=== PATIENT | female | born 1950 | race Caucasian/White ===

== ENCOUNTER → 2018-05-05 | Outpatient (CLI) | payer BC ==
[2018-05-05 09:58] LABS: Basophils # (A) 0.1 k/uL (0-0.2); Basophils % (A) 1 %; Eosinophils # (A) 0.1 k/uL (0-0.7); Eosinophils % (A) 2 %; HCT 37.1 % (34.0-46.0); HGB 12.5 gm/dL (11.4-16.0); Lymphocytes # (A) 2.5 k/uL (1.0-4.8); Lymphocytes % (A) 32 %; MCH 30.7 pg (25.0-35.0); MCHC 33.8 g/dL (31.0-37.0); MCV 90.8 fL (80.0-100.0); Mean Platelet Volume 7.1; Monocytes # (A) 0.3 k/uL (0-1.0); Monocytes % (A) 4 %; Neutrophils # (A) 4.5 k/uL (1.3-7.7); Neutrophils % (A) 59 %; Platelet Count 223 k/uL (150-450); RBC 4.09 m/uL (3.80-5.40); RDW 12.6 % (11.5-15.5); WBC 7.7 k/uL (3.8-10.6)
[2018-05-05 14:13] LABS: Erythrocyte Sedimentation Rate 9 mm/hr (0-20)
== END | disposition home or self-care (01) ==
LOC: LABWHC1 09:01
PROVIDERS: ATTEND Physical Medicine & Rehabilitation
DX: M35.3 Polymyalgia rheumatica (principal)
CPT/HCPCS: 36415; 85025; 85652; 86140

== ENCOUNTER → 2018-05-25 | Outpatient (CLI) | payer BC ==
--- NOTE | 2018-05-25 08:45 | MR ---
EXAMINATION TYPE: MR cervical spine wo con DATE OF EXAM: 05/25/2018 COMPARISON: 04/26/2010 HISTORY: Cervical DDD, Spondylosis, C4-C7 Fusion TECHNIQUE: Multiplanar, multisequence images of the cervical spine were acquired. FINDINGS: Again there is postsurgical fusion of the C4-C7 vertebral levels. Straightening of usual ce rvical lordosis remains as seen on the prior. Bone marrow signal is within normal limits. Incidental note is made of a partially empty sella turcica. No prevertebral soft tissue swelling. C2-C3: There is a bilobed disc osteophyte complex without significant spinal canal stenosis. Uncovert ebral hypertrophy and facet arthropathy creating mild right neural foraminal narrowing at this level. No left-sided neural foraminal narrowing C3-C4: Uncovertebral hypertrophy and facet arthropathy creating mild bilateral neural foraminal narro wing. Small broad-based disc bulge is seen without spinal canal stenosis. C4-C5: There is uncovertebral hypertrophy and facet arthropathy creating mild right and moderate left neural foraminal narrowing. Residual disc is a broad-based disc bulge without significant spinal can al stenosis although there is slight narrowing of the ventral subarachnoid space. C5-C6: As seen on the prior exam of 2009 there is a protuberant osseous spurs/osteophyte that is seen at the postsurgical C5-C6 intervertebral disc space level that abuts the ventral cervical cord and e ffaces the ventral subarachnoid space. There is slight artifact mostly on the axial images through th e cervical cord at this level limiting evaluation for abnormal signal, however no abnormal cord signa l seen on sagittal images. This has not progressed in comparison to the prior 2009. There is mild lily ateral neural foraminal narrowing from uncovertebral hypertrophy and facet arthropathy. C6-C7: Uncovertebral hypertrophy and facet arthropathy creating moderate left and mild right neural f oraminal narrowing. No spinal canal stenosis or recurrent disc herniation. C7-T1: Uncovertebral hypertrophy and facet arthropathy are seen moderately narrowing the left neurofo ramen and mildly narrowing the right neuroforamen. No disc herniation or spinal canal stenosis. IMPRESSION: 1. Redemonstration of mild spinal canal stenosis at C5-C6 is seen on the exam of 2009 as a result of a protuberant spur/osteophyte at the intervertebral disc level and site of prior fusion. No myelomala rigo is identified. 2. No new/recurrent disc herniation or residual disc herniation. No other areas of spinal canal steno sis. 3. Multilevel degenerative disc disease resulting in variable degrees of neural foraminal narrowing a s described above. 4. Redemonstration of straightening of usual cervical lordosis that may be on the basis of muscular s pasm/sprain or patient positioning.
== END | disposition home or self-care (01) ==
LOC: RADMRIMAIN 07:09
PROVIDERS: ATTEND Physical Medicine & Rehabilitation
DX: M48.02 Spinal stenosis, cervical region (principal); M99.71 Connective tissue and disc stenosis of intervertebral foramina of cervical region; M99.72 Connective tissue and disc stenosis of intervertebral foramina of thoracic region; M50.33 Other cervical disc degeneration, cervicothoracic region; M48.8X2 Other specified spondylopathies, cervical region; Z98.1 Arthrodesis status
CPT/HCPCS: 72141

== ENCOUNTER → 2018-08-27 | Outpatient (CLI) | payer BC ==
--- NOTE | 2018-08-27 13:21 | MM ---
Reason for exam: screening (asymptomatic). Last mammogram was performed 4 years and 4 months ago. History: Patient is postmenopausal. Benign excisional biopsy of the left breast, 2000. Took estrogen for 11 years beginning at age 26. Physical Findings: A clinical breast exam by your physician is recommended on an annual basis and results should be correlated with mammographic findings. MG 3D Screening Mammo W/Cad Bilateral CC and MLO view(s) were taken. Prior study comparison: April 14, 2014, bilateral MG diagnostic mammo w CAD [facility]. July 10, 2012, bilateral digital screening mammo w/CAD. The breast tissue is heterogeneously dense. This may lower the sensitivity of mammography. There is no discrete abnormality. No significant changes when compared with prior studies. ASSESSMENT: Negative, BI-RAD 1 RECOMMENDATION: Routine screening mammogram of both breasts in 1 year.
== END | disposition home or self-care (01) ==
LOC: RADMAMWWP 06:55
PROVIDERS: ATTEND Obstetrics & Gynecology
DX: Z12.31 Encounter for screening mammogram for malignant neoplasm of breast (principal)
CPT/HCPCS: 77063; 77067

== ENCOUNTER 2019-05-12 11:58 | Day surgery (SDC) | payer BC ==
[2019-05-10 11:30] VITALS: BMI 25.7
[~2019-05-12 11:58] MED LIST: LACTATED RINGERS 1,000 ML IV SCH; LIDOCAINE 1% 20 ML VIAL (10MG/ML) FOR IV START INTRADERMA PRN; ONDANSETRON 4 MG/2 ML VIAL IVP ONE; Pre Op ABX Message 1 EACH MISC MISCELLANE ONE; fentaNYL (PF) 50 MCG/ML 2 ML AMP IV PRN
[2019-05-12 12:27] VITALS: TEMP 98.5
[2019-05-12] MEDS ORDERED: MIDAZOLAM 2 MG/2 ML VIAL ONE (12:47)
[2019-05-12] MEDS ORDERED: ePHEDrine SULFATE/0.9% NACL/PF 50 MG/5 ML SYRINGE IV ONE (12:47)
[2019-05-12] MEDS ORDERED: fentaNYL (PF) 50 MCG/ML 2 ML AMP ONE (12:47)
[2019-05-12] MEDS ORDERED: PROPOFOL 10 MG/ML 20 ML VIAL IV ONE (12:47)
[2019-05-12] MEDS ORDERED: SODIUM CHLORIDE 0.9% 50 ML with ceFAZolin 2,000 MG IV ONE ×2 (13:08)
[2019-05-12] MEDS ORDERED: BUPIVACAINE (PF) 0.25% 30 ML VIAL SQ ONE (13:10)
[2019-05-12 13:43] VITALS: RESP 18
--- NOTE | 2019-05-12 13:48 | P.OP ---
Date of Procedure: 05/12/19 Preoperative Diagnosis: Hypertrophied bone second and third digits right foot Postoperative Diagnosis: Same Procedure(s) Performed: Partial phalangectomy second and third digits right foot Anesthesia: MAC Surgeon: Kerwin Thompson Indications for Procedure: Painful soft corn second webspace right foot Operative Findings: Hypertrophied bone Description of Procedure: On the date of surgery the patient was taken to the operating room in good condition placed on the operating table supine position where an IV was started and adequate IV anesthetic agents were utilized. Anesthesia was then further supplemented with approximately 8 mL of 0.25% plain Marcaine given in digital blocks to the second and third digits of the patient's right foot The patient's right foot and ankle were then prepped and draped in the usual aseptic manner and over heavy web roll padding an ankle tourniquet was placed above the malleoli of the patient's right ankle The patient's right foot and ankle were then elevated and exsanguinated of blood utilizing Esmarch bandage and after approximately 3 minutes. A time ankle tourniquet to the patient's right ankle was inflated to proximally 250 mmHg. At this time attention was directed to the dorsal lateral side the proximal interphalangeal joint the second toe of the patient's right foot where an approximately 1 cm dorsal linear incision was made the incision was deepened via sharp dissection down through the level of the subcutaneous tissue layers. Dissection was then carried deep down to the level of the Periosteal Structures Overlying the Proximal Interphalangeal Joint. These Were Incised in Line with the Original Skin Incision and Underscored and Retracted from the Underlying Bone Lysing Rotary Bur the Hyperostosis Present on the Lateral Side of the Proximal Interphalangeal Joint Was Craterized. Throughout the Surgical Procedure Copious Amounts Sterile Saline Solution Was Used To Irrigate the Surgical Site The Surgical Site Was Then Inspected and It Was Determined That Adequate Bone Had Been Resected and the Skin Edges Were Coaptated and Maintained Utilizing 4-0 Nylon Simple Interrupted Suture At This Time Attention Was Directed to the Dorsal Medial Side of the Third Digit of the Patient's Right Foot Where the Exact Same Procedure Was Performed Medial Side of the Digit. Adaptic Kerlix fluffs four-inch conformer and 4 inch Coban was used to form a compression dressing and the ankle tourniquet to the patient's right ankle was deflated adequate hemostatic return was seen in all digits of the patient's right foot specifically the second and third toes Patient tolerated the surgery and anesthesia well was taken to recovery room in good postoperative condition.
[2019-05-12 14:25] VITALS: BP 145/67; PULSE 78
== END 2019-05-12 14:25 | disposition home or self-care (01) ==
LOC: OR 11:58
PROVIDERS: ATTEND Podiatrist Foot & Ankle Surgery
DX: M89.371 Hypertrophy of bone, right ankle and foot (principal); L84 Corns and callosities; E78.5 Hyperlipidemia, unspecified; I10 Essential (primary) hypertension; R51 Headache; E78.00 Pure hypercholesterolemia, unspecified; M71.9 Bursopathy, unspecified; M54.40 Lumbago with sciatica, unspecified side; R07.9 Chest pain, unspecified; I49.9 Cardiac arrhythmia, unspecified; J18.0 Bronchopneumonia, unspecified organism; F41.9 Anxiety disorder, unspecified; Z79.2 Long term (current) use of antibiotics; Z79.899 Other long term (current) drug therapy; Z79.1 Long term (current) use of non-steroidal anti-inflammatories (NSAID); Z79.891 Long term (current) use of opiate analgesic; Z88.5 Allergy status to narcotic agent; Z78.0 Asymptomatic menopausal state; Z90.710 Acquired absence of both cervix and uterus; Z87.891 Personal history of nicotine dependence; Z82.3 Family history of stroke; Z83.6 Family history of other diseases of the respiratory system; Z82.49 Family history of ischemic heart disease and other diseases of the circulatory system
CPT/HCPCS: 28124 ×2; J2250; J2405; J0690; J3010; J2704